=== PATIENT | male | born 1965 | race Asian ===

== ENCOUNTER 2017-05-11 11:46 | Emergency (ER) | payer OTHER ==
[~2017-05-11] VITALS: Wt 70.0 kg
[~2017-05-11 11:46] MED LIST: AMLO5TAB4; ZOC10
--- NOTE | 2017-05-11 11:53 | ERA ---
ER Documentation Chief Complaint Date/Time DATE: 05/11/17 TIME: 11:53 Chief Complaint Bleeding from tracheostomy HPI The patient is a 51-year-old male, presenting to the ER by ambulance because of bleeding from the tracheostomy when he woke up this morning. It is minimal bleeding with bright red blood. He had similar symptoms previously. Had tracheostomy for 2 months due to throat cancer from [facility]. He denies fever, syncope, cough, neck pain, chest pain, dyspnea, abdominal pain, vomiting. Past Medical history: HTN, dyslipidemia, gout, asthma, throat cancer ROS All systems reviewed and are negative except as per history of present illness. Medications Home Meds Reported Medications Simvastatin (Simvastatin) 10 Mg Tablet 04/09/10 Amlodipine Besylate* (Norvasc*) 5 Mg Tablet 04/09/10 [None] No Conflict Check 04/09/10 Allergies Allergies: Coded Allergies: No Known Allergies (Verified Allergy, Mild, 04/05/12) PMhx/Soc History of Surgery: No Anesthesia Reaction: No Hx Neurological Disorder: No Hx Respiratory Disorders: No Hx Cardiac Disorders: No Hx Psychiatric Problems: No Hx Miscellaneous Medical Probl: Yes (HTN, DYSLIPIDEMIA, GOUT) Hx Alcohol Use: No Hx Substance Use: No Hx Tobacco Use: No Physical Exam Vitals Vital Signs Date Time Temp Pulse Resp B/P Pulse Ox O2 Delivery O2 Flow Rate FiO2 05/11/17 11:52 98.8 130 22 136/95 99 Physical Exam Const: No acute distress. Head: Atraumatic. Eyes: Normal Conjunctiva. ENT: Normal External Ears, Nose and Mouth. Neck: Full range of motion. No meningismus.Tracheostomy with no active bleeding Resp: Clear to auscultation bilaterally. Cardio: Regular rate and rhythm. Abd: Soft, non distended, normal bowel sounds, non tender. Skin: No petechiae or rashes. Back: No midline or flank tenderness. Ext: No cyanosis, or edema. Neur: Awake and alert. No focal deficit Psych: Normal Mood and Affect. Result Diagram: 05/11/17 1225 05/11/17 1225 Results 24 hrs Laboratory Tests Test 05/11/17 12:25 05/11/17 12:55 White Blood Count 7.810^3/ul Red Blood Count 3.6210^6/ul Hemoglobin 10.4g/dl Hematocrit 31.5% Mean Corpuscular Volume 87.0fl Mean Corpuscular Hemoglobin 28.7pg Mean Corpuscular Hemoglobin Concent 33.0g/dl Red Cell Distribution Width 14.7% Platelet Count 82746^3/UL Mean Platelet Volume 10.0fl Neutrophils % 66.9% Lymphocytes % 13.3% Monocytes % 9.3% Eosinophils % 9.6% Basophils % 0.6% Nucleated Red Blood Cells % 0.0/100WBC Neutrophils # 5.310^3/ul Lymphocytes # 1.010^3/ul Monocytes # 0.710^3/ul Eosinophils # 0.810^3/ul Basophils # 0.110^3/ul Nucleated Red Blood Cells # 0.010^3/ul Sodium Level 141mmol/L Potassium Level 3.4mmol/L Chloride Level 103mmol/L Carbon Dioxide Level 27mmol/L Anion Gap 14 Blood Urea Nitrogen 17mg/dl Creatinine 1.28mg/dl Glucose Level 110mg/dl Calcium Level 9.9mg/dl Prothrombin Time 12.1Sec Prothrombin Time Ratio 0.9 INR International Normalized Ratio 0.90 Activated Partial Thromboplast Time 34.3Sec Current Medications Medications (Trade) Dose Ordered Sig/Benigno Route PRN Reason Start Time Stop Time Status Last Admin Dose Admin IV Flush 10 ml 10 ml STK-MED ONCE .ROUTE 05/11/17 13:32 05/11/17 13:33 DC 05/11/17 13:57 Sodium Chloride (NS) 100 ml @ ud STK-MED ONCE .ROUTE 05/11/17 13:32 05/11/17 13:33 DC 05/11/17 13:57 Iodixanol 100 ml 100 ml STK-MED ONCE .ROUTE 05/11/17 13:32 05/11/17 13:33 DC 05/11/17 13:57 Sodium Chloride (NS) 1,000 ml @ 1,000 mls/hr Q1H ONCE IV 05/11/17 14:00 05/11/17 14:59 DC 05/11/17 13:59 Procedures/MDM [place] [id number] Radiology Main Line: [phone] DIAGNOSTIC IMAGING REPORT Patient: DAYANNA KHANNA : 1965 Age: 51 Sex: M MR #: [id number] [facility] #: [id number] DOS: 05/11/17 1158 Ordering MD: LALO VERAS MD Location: E/R Room/Bed: PROCEDURE: CT scan of the neck with contrast. CLINICAL INDICATION: pain, swelling , bleeding at tracheostomy TECHNIQUE: CT scan of the neck was performed. The patient was examined with the use of intravenous administration of 100 cc of Isovue 300 iodinated contrast. No reported complications occurred. One or more of the following dose reduction techniques were used: Automated exposure control, Adjustment of the mA and/or kV according to patient size, and/or use of iterative reconstruction technique. DOSE: CTDI = 10 mGy and the DLP = 301 mGy-cm. COMPARISON: None available FINDINGS: Tracheostomy tube in place. There is irregular soft tissue wall thickening along the posterior aspect of the trachea measuring up to 12 mm thickness. There is also focal nodularity at the left glottic to subglottic region. Partially imaged large right hilar mass with soft tissue invasion into the mediastinum. There is multiple left upper lobe pulmonary nodules identified which are new when compared to the prior CT of 04/05/2012. There is interval retraction of the bronchovascular bundle and areas of traction bronchiectasis in the apical right upper lung. The bilateral parotid and submandibular glands are unremarkable No deep neck drainable rim-enhancing fluid collection. The major cervical vasculature are patent. Mild paranasal sinus mucosal thickening. No aggressive osteoblastic or osteolytic lesions of the visualized skull base or cervical spine. IMPRESSION: Tracheostomy tube in place. There is irregular soft tissue wall thickening along the posterior aspect of the trachea measuring up to 12 mm thickness. There is also focal nodularity at the left glottic to subglottic region. The findings may be due to infection or inflammation, however, tracheal neoplastic recurrence cannot be excluded. Recommend correlation with direct visualization. No deep neck drainable rim-enhancing fluid collection. Partially imaged large right hilar mass with soft tissue invasion into the mediastinum with multiple left upper lobe pulmonary nodules are new when compared to the prior CT of 04/05/2012 and most compatible with metastasis. There is interval retraction of the bronchovascular bundle and areas of traction bronchiectasis in the apical right upper lung which may be due to post- treatment/post radiation changes. Recommend correlation with patient history. RPTAT: AA .Donnie Walker MD, MD Date Time Electronically viewed and signed by .Donnie Walker MD, MD on 05/11/2017 14:07 .T/ CC: LALO VERAS MD [place] [id number] Radiology Main Line: [phone] DIAGNOSTIC IMAGING REPORT Patient: DAYANNA KHANNA : 1965 Age: 51 Sex: M MR #: [id number] DOS: 05/11/17 1158 Ordering MD: LALO VERAS MD Location: E/R Room/Bed: PROCEDURE: XR Chest. CLINICAL INDICATION: Respiratory distress TECHNIQUE: AP view of the chest was obtained. COMPARISON: 04/05/2012 FINDINGS: Tracheostomy tube is in place. The cardiomediastinal silhouette is within normal limits. There are bilateral lung nodules/masses compatible with metastatic disease which appear progressed. There is partial right upper lobe atelectasis/scarring. No focal consolidation, pleural effusion or pneumothorax is identified. IMPRESSION: Bilateral lung nodules/masses, progressed, compatible with metastatic disease. No acute cardiopulmonary disease identified. Right upper lobe partial atelectasis/scarring. RPTAT: VV .Mack De Souza MD, MD Date Time Electronically viewed and signed by .Mack De Souza MD, MD on 05/11/2017 12:55 .O/ CC: LALO VERAS MD . MEDICAL MAKING DECISION: The patient is a 51-year-old male, presenting with transient bleeding from the tracheostomy He has been in the ER for many hours with a recurrent bleeding. However I would like to admit him for further evaluation by ENT. He declined the admission, The patient signed out AGAINST MEDICAL ADVICE. Risks, benefits, alternatives were explained to the patient. Risks include but not limited to and permanent disability Departure Diagnosis: Primary Impression: Tracheostomy complication, unspecified Additional Impressions: Hypokalemia Anemia Condition: Stable (AMA) LALO VERAS MD May 11, 2017 11:53
[2017-05-11 12:43] LABS: BASOPHIL # 0.1 10^3/ul (0.0-0.1); BASOPHILS % 0.6 % (0.0-2.0); EOSINOPHILS # 0.8 10^3/ul (0.0-0.5); EOSINOPHILS % 9.6 % (0.0-7.0); HEMATOCRIT 31.5 % (42.0-52.0); HEMOGLOBIN 10.4 g/dl (14.0-18.0); LYMPHOCYTES % 13.3 % (15.0-51.0); MEAN CORPUSCULAR HEMOGLOBIN 28.7 pg (29.0-33.0); MONOCYTE # 0.7 10^3/ul (0.3-0.9); MONOCYTES % 9.3 % (0.0-11.0); NEUTROPHIL # 5.3 10^3/ul (1.6-7.5); NEUTROPHILS % 66.9 % (39.0-77.0); PLATELET COUNT 554 10^3/UL (140-415); RED BLOOD COUNT 3.62 10^6/ul (4.70-6.10); RED CELL DISTRIBUTION WIDTH 14.7 % (11.5-14.5); WHITE BLOOD COUNT 7.8 10^3/ul (4.8-10.8)
--- NOTE | 2017-05-11 12:55 | RADRPT ---
PROCEDURE: XR Chest. CLINICAL INDICATION: Respiratory distress TECHNIQUE: AP view of the chest was obtained. COMPARISON: 04/05/2012 FINDINGS: Tracheostomy tube is in place. The cardiomediastinal silhouette is within normal limits. There a re bilateral lung nodules/masses compatible with metastatic disease which appear progressed. There i s partial right upper lobe atelectasis/scarring. No focal consolidation, pleural effusion or pneumot horax is identified. IMPRESSION: Bilateral lung nodules/masses, progressed, compatible with metastatic disease. No acute cardiopulmonary disease identified. Right upper lobe partial atelectasis/scarring. RPTAT: VV .Mack De Souza MD, MD Date Time Electronically viewed and signed by .Mack De Souza MD, on 05/11/2017 12:55 .O/
[2017-05-11 13:11] LABS: CALCIUM 9.9 mg/dl (8.4-10.2); CREATININE 1.28 mg/dl (0.61-1.24); POTASSIUM 3.4 mmol/L (3.5-5.1)
[2017-05-11] MEDS ORDERED: IODIXANOL LOCM 100 ML BTL ONE (13:32)
[2017-05-11] MEDS ORDERED: SOD CHLORIDE 0.9% 100 ML ONE (13:32)
[2017-05-11 13:52] LABS: INR 0.9; PROTIME 12.1 Sec (12.2-14.2); PT RATIO 0.9
[2017-05-11 13:53] LABS: PARTIAL THROMBOPLASTIN TIME 34.3 Sec (25.0-35.0)
[2017-05-11] MEDS ORDERED: SOD CHLORIDE 0.9% 1,000 ML IV ONE (14:00)
--- NOTE | 2017-05-11 14:08 | RADRPT ---
PROCEDURE: CT scan of the neck with contrast. CLINICAL INDICATION: pain, swelling , bleeding at tracheostomy TECHNIQUE: CT scan of the neck was performed. The patient was examined with the use of intravenou s administration of 100 cc of Isovue 300 iodinated contrast. No reported complications occurred. One or more of the following dose reduction techniques were used: Automated exposure control, Adjust ment of the mA and/or kV according to patient size, and/or use of iterative reconstruction technique . DOSE: CTDI = 10 mGy and the DLP = 301 mGy-cm. COMPARISON: None available FINDINGS: Tracheostomy tube in place. There is irregular soft tissue wall thickening along the posterior aspec t of the trachea measuring up to 12 mm thickness. There is also focal nodularity at the left glottic to subglottic region. Partially imaged large right hilar mass with soft tissue invasion into the mediastinum. There is mul tiple left upper lobe pulmonary nodules identified which are new when compared to the prior CT of . There is interval retraction of the bronchovascular bundle and areas of traction bronchiec tasis in the apical right upper lung. The bilateral parotid and submandibular glands are unremarkable No deep neck drainable rim-enhancing fluid collection. The major cervical vasculature are patent. Mild paranasal sinus mucosal thickening. No aggressive osteoblastic or osteolytic lesions of the visualized skull base or cervical spine. IMPRESSION: Tracheostomy tube in place. There is irregular soft tissue wall thickening along the posterior aspec t of the trachea measuring up to 12 mm thickness. There is also focal nodularity at the left glottic to subglottic region. The findings may be due to infection or inflammation, however, tracheal neopl astic recurrence cannot be excluded. Recommend correlation with direct visualization. No deep neck drainable rim-enhancing fluid collection. Partially imaged large right hilar mass with soft tissue invasion into the mediastinum with multiple left upper lobe pulmonary nodules are new when compared to the prior CT of 04/05/2012 and most comp atible with metastasis. There is interval retraction of the bronchovascular bundle and areas of traction bronchiectasis in t he apical right upper lung which may be due to post-treatment/post radiation changes. Recommend anthony elation with patient history. RPTAT: AA .Donnie Walker MD, MD Date Time Electronically viewed and signed by .Donnie Walker MD, MD on 05/11/2017 14:07 .T/
== END 2017-05-11 17:09 | disposition left against medical advice (07) ==
LOC: E/R 11:46
DX: J95.01 Hemorrhage from tracheostomy stoma (principal); E87.6 Hypokalemia; D64.9 Anemia, unspecified; I10 Essential (primary) hypertension; J45.909 Unspecified asthma, uncomplicated; R40.2142 Coma scale, eyes open, spontaneous, at arrival to emergency department; R40.2252 Coma scale, best verbal response, oriented, at arrival to emergency department; R40.2362 Coma scale, best motor response, obeys commands, at arrival to emergency department; Z85.818 Personal history of malignant neoplasm of other sites of lip, oral cavity, and pharynx
CPT/HCPCS: 36415; 70491; 71010; 80048; 85025; 85610; 85730; 86850; 86900; 86901; 99285; J7030; Q9967

== ENCOUNTER 2018-04-13 23:32 | Inpatient (IN) | END 2018-04-20 14:40 | disposition home IV services (08) | DRG 871 ==